=== PATIENT | male | born 1990 | race Caucasian/White ===

== ENCOUNTER 2017-05-26 20:34 | Emergency (ER) | payer MEDICAID ==
[~2017-05-26] VITALS: Ht 167.6 cm; Wt 75.0 kg
[~2017-05-26 20:34] MED LIST: BD LACTINEX1.4 MG PO; KEFLEX500 M1 PO; MOT800 PO
[2017-05-26 21:10] VITALS: Ht 167.6 cm; Wt 75.0 kg
[2017-05-26 23:28] LABS: BASOPHIL % 0.7 % (0-2); PLATELET COUNT 229 x10^3mcL (130-400); RED CELL DISTRIBUTION WIDTH 11.7 % (11.5-14.5)
[2017-05-27 00:18] VITALS: BP 116/72
== END 2017-05-27 00:18 | disposition home or self-care (01) ==
LOC: ED 20:34
PROVIDERS: Emergency Medicine
DX: K62.5 Hemorrhage of anus and rectum (principal); Z90.49 Acquired absence of other specified parts of digestive tract